=== PATIENT | male | born 1945 | race Caucasian/White ===

== ENCOUNTER 2019-10-13 05:43 | Day surgery (SDC) | payer BC ==
[~2019-10-13] VITALS: Ht 182.9 cm; Wt 79.4 kg
[~2019-10-13 05:43] MED LIST: A/C/1TAB3 PO; ASCO10007 PO; ASPI-555 PO; CA C1TAB99 PO; EZET1TAB21 PO; FOLI20CA PO; GLUC-148 PO; LEVO125T95 PO; LEVO5TAB13 PO; MAGN250T10 PO; METO-408 PO; MOME17N NS; NIAC500T22 PO; OMEG-138 PO; POTA10CA44 PO; UBID100C45 PO; VITA1CAP85 PO; ZINC50TA64 PO
[2019-10-13] MEDS ORDERED: SODIUM CHLORIDE 0.9% 1000ML 1,000 ML IV ONE ×2 (05:45→06:28)
[2019-10-13 06:59] VITALS: BP 119/67
[2019-10-13] MEDS ORDERED: GLYCOPYRROLATE 0.2 MG/ML 5 ML VIAL ONE (07:47)
[2019-10-13] MEDS ORDERED: PROPOFOL 10 MG/ML 20ML VIAL IV ONE (07:47)
[2019-10-13] MEDS ORDERED: LIDOCAINE HCL 1% 20 ML VIAL ONE (07:57)
[2019-10-13 08:10] VITALS: BP 110/62
[2019-10-13 08:15] VITALS: BP 108/60
[2019-10-13 08:20] VITALS: BP 106/66
== END 2019-10-13 08:40 | disposition home or self-care (01) ==
LOC: ENDO 05:43 → DAH 05:43 → ENDO 08:40
PROVIDERS: ATTEND Internal Medicine Gastroenterology
DX: Z12.11 Encounter for screening for malignant neoplasm of colon (principal); K63.5 Polyp of colon; K57.30 Diverticulosis of large intestine without perforation or abscess without bleeding; E78.5 Hyperlipidemia, unspecified; M19.90 Unspecified osteoarthritis, unspecified site; I45.10 Unspecified right bundle-branch block; E03.9 Hypothyroidism, unspecified; I25.10 Atherosclerotic heart disease of native coronary artery without angina pectoris; Z79.82 Long term (current) use of aspirin; Z79.890 Hormone replacement therapy; Z98.890 Other specified postprocedural states; Z85.038 Personal history of other malignant neoplasm of large intestine; Z95.0 Presence of cardiac pacemaker; Z80.0 Family history of malignant neoplasm of digestive organs; Z90.49 Acquired absence of other specified parts of digestive tract
CPT/HCPCS: 45380; 93005; A4215; A4221; A4222; A4223; A4606; A4615; A4663; J2704; J3490; J7030 ×2